=== PATIENT | female | born 1990 | race Caucasian/White ===

== ENCOUNTER 2020-01-17 06:48 | Emergency (ER) | payer OTHER, SELFPAY ==
[2020-01-17 07:01] VITALS: BP 122/83; PULSE 110; RESP 20; TEMP 36.1; O2SAT 100
[2020-01-17] MEDS: ONDANSETRON INJ 4 MG/2 ML VIAL IV PUSH (07:04)
[2020-01-17] MEDS: SODIUM CHLORIDE 0.9% IV 1,000 ML 999 ML IV CONT ×2 (07:04→08:42)
--- NOTE | 2020-01-17 07:07 | ED.ALCOHOL ---
HPI - Alcohol General Chief Complaint: Alcohol Stated Complaint: vomiting Time Seen by Provider: 01/17/20 07:07 Source: patient and RN notes reviewed Mode of arrival: ambulatory Limitations: no limitations History of Present Illness HPI narrative: Patient states that today is her birthday last night she when out and partied with friends. She said that she drank half a bottle of Tequila and has been vomiting all night long. At this point she is only dry heaving. Says her stomach is sore from vomiting so much. Last drink: hours (ago) (12) Chronic alcohol use: No Previous visits for alcohol intoxication: No Recent trauma: No Associated symptoms: nausea, vomiting and abdominal pain Treatments prior to arrival: none Related Data Home Medications Medication Instructions Recorded Confirmed buspirone 7.5 mg PO TID 01/17/20 01/17/20 cyproheptadine 4 mg PO HS 01/17/20 01/17/20 hydroxyzine HCl 10 mg PO PRN 01/17/20 01/17/20 Allergies Allergy/AdvReac Type Severity Reaction Status Date / Time No Known Allergies Allergy Unverified 03/01/13 12:29 Review of Systems Review of Systems: All systems reviewed & are unremarkable except as noted in HPI and below PMFSH Past Medical History Medical History (Updated 01/17/20 @ 09:48 by Gavino Cowan MD) Anxiety disorder Surgical History Surgical History (Updated 01/17/20 @ 07:15 by Gavino Cowan MD) Delivery by section History of bilateral tubal ligation Hx of tonsillectomy Social History Social History (Updated 01/17/20 @ 07:14 by Gavino Cowan MD) Smoking status: Current every day smoker Alcohol intake: current Substance use: current Substance use type: marijuana Exam Const: General: no acute distress, alert and ill appearing (Retching) acutely Nutritional Appearance: well nourished and thin Orientation/consciousness: patient oriented x3 HENMT: Head: normal to inspection Ears: external ears normal General nose exam: Normal external nose present Face and sinus: normal facial exam Mouth: Yes lip normal and Yes moist mucous membranes Eyes: Conjunctivae: conjunctivae normal Pupils: Equal, round and reactive pupils present EOM: EOMs intact bilaterally Neck: Neck: normal visual inspection Resp: Effort & Inspection: normal respiratory effort Auscultation: clear to auscultation bilaterally Cardio: Rate: regular rate Rhythm: regular rhythm GI: GI Palp: Yes Soft to palpation, Yes Tenderness to palpation present (GI) and No Guarding due to palpation present (GI) Auscultation: normal bowel sounds Back/Spine/Pelvis: Cervical Spine: cervical ROM normal Thoracic/Lumbar Spine: thoraco-lumbar ROM normal Skin: General skin exam: normal color Rashes: no rashes Neuro: General: patient oriented x3, moves all extremities and no focal motor deficits Speech: normal speech Extrem: General: normal to inspection and no clubbing, cyanosis or edema Psych: Appearance: grossly normal and well kempt Mental Status: mental status grossly normal Affect: normal affect Attitude: cooperative Thought content: Yes Normal thought content present Course Course Emergency Course: Patient finally stopped vomiting after combination of Zofran and Reglan IV. She received 2 L of normal saline. She feels much better. She was able to eat some pudding without vomiting. and she also urinated. Vital Signs Vital signs: Vital Signs Temperature 36.1 C L 01/17/20 07:01 Pulse Rate 110 H 01/17/20 07:01 Respiratory Rate 20 01/17/20 07:01 Blood Pressure 122/83 01/17/20 07:01 Pulse Oximetry 100 01/17/20 07:01 Temperature 37.0 C 01/17/20 09:47 Pulse Rate 65 01/17/20 09:47 Respiratory Rate 20 01/17/20 09:47 Blood Pressure 110/62 01/17/20 09:47 Pulse Oximetry 99 01/17/20 09:47 MDM - Alcohol Lab Data Result diagrams: 01/17/20 07:26 01/17/20 07:26 Labs: Lab Results 01/17/20 01/17/20 Range/Units 07:
[2020-01-17] MEDS: METOCLOPRAMIDE HCL INJ 10 MG/2 ML VIAL IV PUSH (07:14)
[2020-01-17 07:31] VITALS: BP 116/80; PULSE 48; RESP 18; O2SAT 92
[2020-01-17 07:32] LABS: Basophils Percent Auto 0.7 % (0.0-1.0); Eosinophils Absolute Auto 0.03 K/mm3 (0.02-0.50); Eosinophils Percent Auto 0.2 % (1.0-6.0); Hematocrit 39.4 % (35.0-49.0); Hemoglobin 12.9 g/dL (12.0-15.0); Immature Granulocyte Absolute 0.07 K/mm3 (0.00-0.00); Immature Granulocyte Percent A 0.5 % (0.0-0.0); Lymphocytes Absolute Auto 1.97 K/mm3 (1.10-4.50); Lymphocytes Percent Auto 13.3 % (18.0-42.0); Mean Corpuscular HGB Conc 32.7 g/dL (32.0-36.0); Mean Corpuscular Hemoglobin 29.9 pg (27.0-31.0); Mean Corpuscular Volume 91.4 fL (78.0-102.0); Mean Platelet Volume 11.1 fl (9.2-11.8); Monocytes Absolute Auto 0.68 K/mm3 (0.10-0.90); Monocytes Percent Auto 4.6 % (2.0-11.0); Neutrophils Percent Auto 80.7 % (50.0-70.0); Platelet Count Result 287 K/mm3 (150-420); Red Blood Count 4.31 M/mm3 (4.20-5.40); Red Cell Distribution Width 13.4 % (11.6-14.4); White Blood Count 14.8 K/mm3 (4.8-10.8)
[2020-01-17 07:47] LABS: Alanine Aminotransferase 38 U/L (14-59); Albumin Level 4.3 g/dL (3.4-5.0); Alkaline Phosphatase 56 U/L (46-116); Anion Gap 12 mmol/L (8-16); Aspartate Amino Transferase 35 U/L (15-37); Bilirubin,Total 0.3 mg/dL (0.00-1.00); Blood Urea Nitrogen 14 mg/dL (7-18); Calcium 8.4 mg/dL (8.5-10.1); Carbon Dioxide 25 mmol/L (21-32); Chloride 108 mmol/L (98-108); Estimated Glomerular Filt Rate > 60; Ethanol 5 mg/dL (0-6); Glucose 144 mg/dL (70-99); Osmolality Calculated 303 mOsm/kg (285-295); Potassium 3.7 mmol/L (3.5-5.1); Sodium 145 mmol/L (136-145); Total Protein 7.1 g/dL (6.4-8.2)
[2020-01-17 09:47] VITALS: BP 110/62; PULSE 65; RESP 20; TEMP 37; O2SAT 99
== END 2020-01-17 09:54 | disposition home or self-care (01) ==
PROVIDERS: Emergency Provider Emergency Medicine
DX: R11.2 Nausea with vomiting, unspecified (principal)
CPT/HCPCS: 36415; 80053; 80307; 85025; 96361; 96374; 96375; 99283; 99284; J2405; J2765; J7030

== ENCOUNTER 2020-04-01 15:03 | Emergency (ER) | payer OTHER, SELFPAY ==
--- NOTE | ~2020-04-01 | CT_ITS ---
EXAMINATION: CT abdomen pelvis w con DATE: 04/01/2020 17:01 INDICATION: Lower abdominal pain TECHNIQUE: Computed tomography (CT) of the abdomen and pelvis was performed with 100 mL Omnipaque-350 intravenous contrast. Automated exposure control and iterative reconstruction technique were employe d. The dose-length product was 305.79 mGy-cm. COMPARISON: None FINDINGS: Lung bases are clear. Heart size is normal. No pericardial or pleural effusion. Wall thickening at th e gastric antrum. Liver, gallbladder, spleen, pancreas, bilateral adrenal glands and kidneys are norm al. Bowels including the appendix are normal. Bladder, retroverted uterus and bilateral adnexa are un remarkable. Small amount of likely physiologic free fluid in the pelvis. No abscess or free intraperi leila gas. No pathologically enlarged abdominal or pelvic lymphadenopathy. Mild lumbar levocurvature. Right acetabular bone island. IMPRESSION: 1. Wall thickening at the gastric antrum which could be due to gastritis, peptic ulcer disease or art ifact of peristalsis. 2. Small amount of likely physiologic free fluid in the pelvis. No other acute intra-abdominal/pelvic process. Reviewed, dictated and finalized at location A. [employer] IMPRESSION: 1. Wall thickening at the gastric antrum which could be due to gastritis, pepti c ulcer disease or artifact of peristalsis. 2. Small amount of likely physiologic free fluid in the pelvis. No other acute intra-abdominal/pelvic process.
[2020-04-01 15:20] VITALS: BP 100/63; PULSE 70; RESP 16; TEMP 36.6; O2SAT 98
[2020-04-01 16:16] LABS: Basophils Absolute Auto 0.08 K/mm3 (0.00-0.10); Basophils Percent Auto 0.9 % (0.0-1.0); Eosinophils Absolute Auto 0.18 K/mm3 (0.02-0.50); Eosinophils Percent Auto 2.1 % (1.0-6.0); Hematocrit 37.2 % (35.0-49.0); Hemoglobin 12.1 g/dL (12.0-15.0); Immature Granulocyte Absolute 0.03 K/mm3 (0.00-0.00); Immature Granulocyte Percent A 0.4 % (0.0-0.0); Lymphocytes Absolute Auto 2.85 K/mm3 (1.10-4.50); Lymphocytes Percent Auto 33.6 % (18.0-42.0); Mean Corpuscular HGB Conc 32.5 g/dL (32.0-36.0); Mean Corpuscular Hemoglobin 29.5 pg (27.0-31.0); Mean Corpuscular Volume 90.7 fL (78.0-102.0); Monocytes Absolute Auto 0.75 K/mm3 (0.10-0.90); Monocytes Percent Auto 8.8 % (2.0-11.0); Neutrophils Absolute Auto 4.6 K/mm3 (1.7-7.2); Neutrophils Percent Auto 54.2 % (50.0-70.0); Platelet Count Result 245 K/mm3 (150-420); Red Cell Distribution Width 13.2 % (11.6-14.4); White Blood Count 8.5 K/mm3 (4.8-10.8)
[2020-04-01 16:19] LABS: Add Urine Microscopic? YES; Appearance Urine Cloudy (Clear); Bilirubin Urine 1+ (Negative); Blood Urine 3+ (Negative); Color Urine Amber (Yellow); Glucose Urine UA Negative (Negative); Ketones Urine Negative (Negative); Leukocyte Esterase Ur Negative LEU/UL (Negative); Nitrate Urine Negative (Negative); Protein Urine Trace (Negative); Specific Grav Ur 1.025 (1.010-1.020); Urobilinogen Urine 0.2 mg/dL (0.2-1.0); pH Urine 5.5 (5.0-8.0)
[2020-04-01 16:28] LABS: RBC Urine 51-75 /hpf (0-2)
[2020-04-01 16:29] LABS: Bacteria Urine 1+ /hpf; Squamous Epithelial Cell Urine Few /hpf (Few); WBC Urine 0-3 /hpf (0-3)
[2020-04-01 16:30] LABS: Urine Pregnancy Test Negative
[2020-04-01] MEDS: SODIUM CHLORIDE 0.9% IV 1,000 ML 999 ML IV CONT (16:30)
[2020-04-01] MEDS: ONDANSETRON INJ 4 MG/2 ML VIAL IV PUSH (16:30)
[2020-04-01 16:31] LABS: Partial Thromboplastin Time 29.2 SEC (23.90-30.70); Prothrombin Time 11.4 Seconds (9.50-12.10)
[2020-04-01 16:31] LABS: Pregnancy On Board Control Positive
[2020-04-01 16:32] LABS: Alanine Aminotransferase 23 U/L (14-59); Albumin Level 3.8 g/dL (3.4-5.0); Alkaline Phosphatase 50 U/L (46-116); Anion Gap 9 mmol/L (8-16); Aspartate Amino Transferase 19 U/L (15-37); Bilirubin,Total 0.5 mg/dL (0.00-1.00); Blood Urea Nitrogen 14 mg/dL (7-18); Calcium 8.5 mg/dL (8.5-10.1); Carbon Dioxide 27 mmol/L (21-32); Chloride 106 mmol/L (98-108); Estimated Glomerular Filt Rate > 60; Glucose 79 mg/dL (70-99); Lipase 52 U/L (73-393); Osmolality Calculated 293 mOsm/kg (285-295); Potassium 3.6 mmol/L (3.5-5.1); Sodium 142 mmol/L (136-145); Total Protein 6.7 g/dL (6.4-8.2)
[2020-04-01] MEDS: DICYCLOMINE HCL INJ 20 MG/2 ML VIAL IM (16:44)
--- NOTE | 2020-04-01 17:09 | ED.ABDPAIN ---
HPI - Abdominal Pain General Chief Complaint: Abdominal Pain Stated Complaint: 30YO female w/ 2 day h/o generalized abd pain associated w/ N/V. Patient here for evaluation, denies fever, chills, URI Related Data Home Medications Medication Instructions Recorded Confirmed buspirone 7.5 mg PO TID 01/17/20 04/01/20 cyproheptadine 4 mg PO HS 01/17/20 04/01/20 hydroxyzine HCl 10 mg PO PRN 01/17/20 04/01/20 Allergies Allergy/AdvReac Type Severity Reaction Status Date / Time No Known Allergies Allergy Unverified 03/01/13 12:29 Review of Systems Review of Systems: All systems reviewed & are unremarkable except as noted in HPI and below Constitutional: Constitutional: Reports no additional constitutional complaints, Denies chills, Denies fever(s) and Denies weakness Cardiovascular: Cardiovascular: Reports no additional cardiovascular complaints and Denies chest pain Respiratory: Respiratory: Reports no additional respiratory complaints Gastrointestinal: Gastrointestinal: Reports abdominal pain, Denies constipation, Denies diarrhea, Reports nausea and Reports vomiting Musculoskeletal: Musculoskeletal: Reports no additional musculoskeletal complaints Integumentary/Breasts: Skin/Breast: Reports system reviewed and no additional complaints, except as docu Neurologic: Reports system reviewed and no additional complaints, except as documented Psychiatric: Psychiatric: Reports no additional psychiatric complaints Endocrine: Endocrine: Reports no additional endocrine complaints Hematologic/Lymphatic: Hematologic/Lymphatic: Reports no additional hematologic/lymphatic complaints [facility] Past Medical History Medical History Anxiety disorder Surgical History Surgical History Delivery by section History of bilateral tubal ligation Hx of tonsillectomy Social History Social History Smoking status: Current every day smoker Alcohol intake: current Substance use: current Substance use type: marijuana Exam Const: General: healthy appearing and no acute distress Nutritional Appearance: well nourished Orientation/consciousness: patient oriented x3 Limitations: no limitations HENMT: Head: normal to inspection Eyes: Conjunctivae: conjunctivae normal Pupils: Equal, round and reactive pupils present Neck: Neck: normal visual inspection Chest: Chest palpation & inspection: normal inspection of the chest Resp: Effort & Inspection: normal respiratory effort Auscultation: clear to auscultation bilaterally Cardio: Rate: regular rate Rhythm: regular rhythm GI: Inspection: non-distended GI Palp: Yes Soft to palpation, Yes Tenderness to palpation present (GI) (Mild generalized TTP), No Guarding due to palpation present (GI) and No Rebound tenderness present Percussion: Yes normal to percussion Auscultation: normal bowel sounds, bowel sounds present, Hyperactive bowel sounds present and no hypoactive bowel sounds : General: Yes no CVA tenderness Back/Spine/Pelvis: Back: no CVA tenderness Skin: General skin exam: normal color Neuro: General: patient oriented x3, moves all extremities, no meningeal signs, no focal motor deficits and CN's II-XI intact bilaterally Cranial nerves: Yes Nystagmus not present Speech: normal speech Gait exam (Neuro): Normal gait present Extrem: General: normal to inspection Psych: Mental Status: mental status grossly normal Course Course Emergency Course: W/U reviewed and normal (Pt on menstrual cycle). She feels better after IVF and Bentyl. Wants to go home. Vital Signs Vital signs: Vital Signs Temperature 97.9 F 04/01/20 15:20 Pulse Rate 70 04/01/20 15:20 Respiratory Rate 16 04/01/20 15:20 Blood Pressure 100/63 04/01/20 15:20 Pulse Oximetry 98 04/01/20 15:20 Temperature 97.
== END 2020-04-01 17:48 | disposition home or self-care (01) ==
PROVIDERS: Emergency Provider Family Medicine
DX: K52.9 Noninfective gastroenteritis and colitis, unspecified (principal)
CPT/HCPCS: 36415; 74177; 80053; 81001; 81025; 83690; 85025; 85610; 85730; 96361; 96374; 96375; 99283; 99284; J0500; J2405; J7030; Q9965

== ENCOUNTER → 2020-05-21 15:53 | Outpatient (CLI) | payer OTHER, SELFPAY ==
[2020-05-21 18:26] LABS: SARS-CoV-2 RNA PCR Negative
== END ==
PROVIDERS: PCP Family Medicine; Visit Provider Internal Medicine Gastroenterology
DX: Z01.812 Encounter for preprocedural laboratory examination (principal); Z20.822 Contact with and (suspected) exposure to COVID-19
CPT/HCPCS: C9803; U0003; U0005

== ENCOUNTER 2020-05-23 00:52 | Day surgery (SDC) | payer OTHER, SELFPAY ==
[2020-05-14 10:48] VITALS: BMI 25.8
--- NOTE | 2020-05-22 13:50 | WPDANESEPPF ---
Anes - Initial Pre Proc Eval Procedure: Operation Date: 05/23/20 12:30 Proposed Procedures p Colonoscopy - Gavino Huerta DO Date/Time: 05/22/20 13:50 Surgeon: Gavino Huerta DO Pre Op Diagnosis: Irritable Bowel Syndrome, Constipation/Diarrhea Patient Data Age: 30 Gender: F Height: 1.5 m Weight: 58 kg Allergies Allergy/AdvReac Type Severity Reaction Status Date / Time No Known Allergies Allergy Unverified 05/23/20 11:39 Home Medications Medication Instructions Recorded Confirmed Type buspirone 7.5 mg PO TID 01/17/20 05/14/20 History hydroxyzine HCl 10 mg PO PRN 01/17/20 05/14/20 History ondansetron 4 mg PO Q8H PRN #20 tablet 04/01/20 05/14/20 Rx Patient hx anesthesia problems: none Family hx anesthesia problems: none PMFSH Past Medical History Medical History (Updated 05/22/20 @ 13:50 by Ignacio Mae DO) Anxiety disorder Bipolar disorder Surgical History Surgical History Delivery by section History of bilateral tubal ligation Hx of tonsillectomy Social History Social History Smoking packs per day: 0.5 Smoking cigarettes per day: 10.0 Years smoked: 18 Smoking pack-years: 9.00 Smoking status: Current every day smoker Tobacco type: cigarettes Alcohol intake: never Substance use: current Substance use type: marijuana Last use: daily Living arrangements: with family Spiritual care concerns: No Anes - Eval Final PreProcedure Day of Procedure 05/22/20 13:50 Patient weight: overweight Heart: regular rate and rhythm Lungs: clear to auscultation and normal air movement Airway: Mallampati scale class II Neurological: alert and oriented Last oral intake: >/= 8 hours ASA classification: III Emergent: no Anesthetic plan: proceed Anesthesia type and monitoring: general GIVS and standard monitoring Informed Consent: The patient's anesthetic plan and its attendant risks and benefits were discussed with the patient/family/POA. Questions were solicited and answers provided to the satisfaction of the patient/family/POA.
[2020-05-23 11:41] VITALS: BP 102/60; PULSE 60; RESP 16; TEMP 35.9; O2SAT 100
[2020-05-23] MEDS: LACTATED RINGERS 1,000 ML 150 ML IV CONT (11:53)
--- NOTE | 2020-05-23 12:21 | PM.IMHP ---
H&P: [facility] History of Present Illness Date/Time: 05/23/20 12:21 Chief Complaint: Reason for visit colonoscopy. Narrative: Reason for visit is colonoscopy. This very pleasant lady's seen at the request of the primary physician. The patient examined chart reviewed. Impression: Here very pleasantly with abdominal pain with alternating constipation and diarrhea. This may be variant of IBS. She does have some thickening of the gastric antrum and a imaging which may indicate underlying peptic ulcer disease. Anxiety/depression /bipolar. Methamphetamine abuse in remission. Recommendation: Colonoscopy. EGD scheduled. History: This very pleasant lady's being that for abdominal pain. She is having abdominal pain in the epigastric area for the last month. Eating exacerbates the pain. Nausea, vomiting hematemesis tonight. She has lost approximately 5 lb since it began. The pain has been slowly improving. Bowel habits tend to be 1 of alternating constipation diarrhea. He has been that for years. Hematochezia, melena And acholic stools or night. Patient is here for colonoscopy. EGD scheduled. CT image revealed a thickened gastric antrum. Physical examination: General: very pleasant patient in no acute distress. HEENT: Head was normocephalic sclerae is clear mouth without masses neck was supple. Heart: Rate rhythm regular without S3 or S4. Lungs: CTA. Abdomen: Soft with no guarding or rigidity. Bowel sounds were active. Neurologic: Cranial nerves 2 through 12 intact. No focal defects. No clonus. Musculoskeletal system: Revealed no joint tenderness or swelling no muscle atrophy. Extremities: Reveal no significant edema. Skin: Warm and dry with normal turgor. Mental status: intact. Patient is alert and oriented. Review of Systems Review of Systems: All systems reviewed & are unremarkable except as noted in HPI and below [facility] Past Medical History Medical History (Updated 05/23/20 @ 12:22 by Gavino Huetra DO) Anxiety disorder Bipolar disorder IBS (irritable bowel syndrome) C/D Methamphetamine abuse in remission Surgical History Surgical History Delivery by section History of bilateral tubal ligation Hx of tonsillectomy Social History Social History Smoking packs per day: 0.5 Smoking cigarettes per day: 10.0 Years smoked: 18 Smoking pack-years: 9.00 Smoking status: Current every day smoker Tobacco type: cigarettes Alcohol intake: never Substance use: current Substance use type: marijuana Last use: daily Living arrangements: with family Spiritual care concerns: No Meds Home Medications and Allergies Home Medications Medication Instructions Recorded Confirmed Type buspirone 7.5 mg PO TID 01/17/20 05/23/20 History hydroxyzine HCl 10 mg PO PRN 01/17/20 05/23/20 History ondansetron 4 mg PO Q8H PRN #20 tablet 04/01/20 05/23/20 Rx Allergies Allergy/AdvReac Type Severity Reaction Status Date / Time No Known Allergies Allergy Unverified 05/23/20 11:39 Vital Signs Vital Signs - 24 hr 05/23/20 11:41 Temperature 35.9 C L Pulse Rate 60 Respiratory Rate 16 Blood Pressure 102/60 Pulse Oximetry 100
[2020-05-23 12:44] VITALS: BP 100/67; PULSE 73; RESP 18; O2SAT 100
[2020-05-23 12:54] VITALS: BP 95/63; PULSE 76; RESP 16; O2SAT 99
[2020-05-23 13:04] VITALS: BP 98/58; PULSE 62; RESP 17; O2SAT 100
== END 2020-05-23 13:26 | disposition home or self-care (01) ==
PROVIDERS: PCP Family Medicine; Visit Provider Internal Medicine Gastroenterology
PROC: 0DJD8ZZ Inspection of Lower Intestinal Tract, Via Natural or Artificial Opening Endoscopic (ICD-10-PCS; CPT 45378; principal; 2020-05-23 12:30)
DX: K52.9 Noninfective gastroenteritis and colitis, unspecified (principal); K62.1 Rectal polyp; F41.9 Anxiety disorder, unspecified; F31.9 Bipolar disorder, unspecified; F17.210 Nicotine dependence, cigarettes, uncomplicated; F12.90 Cannabis use, unspecified, uncomplicated
CPT/HCPCS: 45380; 88305; J2704; J7120

== ENCOUNTER → 2020-06-02 00:25 | Outpatient (CLI) | payer OTHER, SELFPAY ==
[2020-06-02 20:38] LABS: SARS-CoV-2 RNA PCR Negative
== END ==
PROVIDERS: PCP Family Medicine; Visit Provider Internal Medicine Gastroenterology
DX: Z01.812 Encounter for preprocedural laboratory examination (principal); Z20.822 Contact with and (suspected) exposure to COVID-19
CPT/HCPCS: C9803; U0003; U0005

== ENCOUNTER 2020-06-06 00:29 | Day surgery (SDC) | payer OTHER, SELFPAY ==
[2020-05-14 10:55] VITALS: BMI 25.8
[2020-06-06 10:38] VITALS: BP 116/47; PULSE 71; RESP 16; TEMP 36.5; O2SAT 100
[2020-06-06] MEDS: LACTATED RINGERS 1,000 ML 150 ML IV CONT (10:45)
--- NOTE | 2020-06-06 10:50 | WPDANESEPPF ---
Anes - Initial Pre Proc Eval Procedure: Operation Date: 06/06/20 11:30 Proposed Procedures p Esophagogastroduodenoscopy - Gavino Huerta DO Date/Time: 06/06/20 10:50 Surgeon: Gavino Huerta DO Pre Op Diagnosis: Nausea, Gastro eshophageal Reflux Disease Patient Data Age: 30 Gender: F Height: 4 ft 11 in Weight: 57.9 kg Last Vital Signs Temp 36.5 C 06/06/20 10:38 Pulse 71 06/06/20 10:38 Resp 16 06/06/20 10:38 BP 116/47 L 06/06/20 10:38 Pulse Ox 100 06/06/20 10:38 Allergies Allergy/AdvReac Type Severity Reaction Status Date / Time No Known Allergies Allergy Verified 06/06/20 10:33 Home Medications Medication Instructions Recorded Confirmed Type buspirone 7.5 mg PO TID 01/17/20 05/23/20 History hydroxyzine HCl 10 mg PO PRN 01/17/20 05/23/20 History ondansetron 4 mg PO Q8H PRN #20 tablet 04/01/20 05/23/20 Rx Patient hx anesthesia problems: none Family hx anesthesia problems: none PMFSH Past Medical History Medical History Anxiety disorder Bipolar disorder IBS (irritable bowel syndrome) C/D Methamphetamine abuse in remission Surgical History Surgical History Delivery by section History of bilateral tubal ligation Hx of tonsillectomy Social History Social History Smoking packs per day: 0.5 Smoking cigarettes per day: 10.0 Years smoked: 18 Smoking pack-years: 9.00 Smoking status: Current every day smoker Tobacco type: cigarettes Alcohol intake: never Substance use: current Substance use type: marijuana Last use: daily Living arrangements: with family Spiritual care concerns: No Anes - Eval Final PreProcedure Day of Procedure 06/06/20 10:50 Patient weight: normal Heart: regular rate and rhythm Lungs: clear to auscultation Airway: Mallampati scale class II Neurological: alert and oriented Last oral intake: >/= 8 hours ASA classification: II Emergent: no Anesthetic plan: proceed Anesthesia type and monitoring: general GIVS and standard monitoring Informed Consent: The patient's anesthetic plan and its attendant risks and benefits were discussed with the patient/family/POA. Questions were solicited and answers provided to the satisfaction of the patient/family/POA.
--- NOTE | 2020-06-06 11:53 | WPDHPUPDATE1 ---
History and Physical Update Update Date/Time: 06/06/20 11:53 History and Physical has been reviewed, including an updated exam of the patient. There are NO changes in the patient's condition. Risks, benefits, and alternatives have been discussed and questions answered. Patient agrees to proceed with procedure.
[2020-06-06 12:03] VITALS: BP 100/55; PULSE 73; RESP 19; O2SAT 99
[2020-06-06 12:13] VITALS: BP 100/58; PULSE 72; RESP 24; O2SAT 100
[2020-06-06 12:23] VITALS: BP 104/57; PULSE 70; RESP 23; O2SAT 100
== END 2020-06-06 12:40 | disposition home or self-care (01) ==
PROVIDERS: PCP Family Medicine; Visit Provider Internal Medicine Gastroenterology
PROC: 0DJ08ZZ Inspection of Upper Intestinal Tract, Via Natural or Artificial Opening Endoscopic (ICD-10-PCS; CPT 43235; principal; 2020-06-06 11:30)
DX: K21.9 Gastro-esophageal reflux disease without esophagitis (principal); K25.9 Gastric ulcer, unspecified as acute or chronic, without hemorrhage or perforation; K44.9 Diaphragmatic hernia without obstruction or gangrene; K29.50 Unspecified chronic gastritis without bleeding; B96.81 Helicobacter pylori [H. pylori] as the cause of diseases classified elsewhere; F31.9 Bipolar disorder, unspecified; F41.9 Anxiety disorder, unspecified; K58.2 Mixed irritable bowel syndrome; F17.210 Nicotine dependence, cigarettes, uncomplicated; F12.90 Cannabis use, unspecified, uncomplicated
CPT/HCPCS: 43239; 87081; 88305; 88342; J2704; J7120

== ENCOUNTER 2021-07-15 19:52 | Emergency (ER) | payer OTHER, SELFPAY ==
[2021-07-15 20:01] VITALS: BP 115/72; PULSE 84; RESP 16; TEMP 36.3; O2SAT 99
--- NOTE | 2021-07-15 20:16 | ED.NAVMDI ---
HPI - Nausea/Vomiting/Diarrhea General Chief complaint: Unspecified Stated complaint: stomach pain Time Seen by Provider: 07/15/21 20:16 Source: patient History of Present Illness HPI Narrative: 31-year-old female, smoker, status post , status post BTL, Anxiety, bipolar disorder history of methamphetamine abuse presents to the ER with -- acute onset epigastric pain. Pain started 2 hours ago. -- Nausea without any vomiting. No diarrhea. No fever. No prior episodes of abdominal pain MD elicited complaint: nausea Pertinent past history: anorexia Onset (ago): hour(s) ( started 2 hours ago.) Associated nausea: Yes Associated abdominal pain: Yes Location of pain: epigastric Radiation: diffuse Pain consistency: constant Severity: severe Quality: aching Exacerbating factors: none Relieving factors: none Related Data Home Medications Medication Instructions Recorded Confirmed buspirone 7.5 mg PO TID 01/17/20 07/15/21 hydroxyzine HCl 10 mg PO PRN 01/17/20 07/15/21 Allergies Allergy/AdvReac Type Severity Reaction Status Date / Time No Known Allergies Allergy Verified 06/06/20 10:33 Review of Systems Review of Systems: All systems reviewed & are unremarkable except as noted in HPI and below Constitutional: Constitutional: Reports as per HPI and Reports no additional constitutional complaints Eyes: Eyes: Reports as per HPI and Reports no additional eye complaints ENT: Reports system reviewed and no additional complaints, except as documented and Reports as per HPI Cardiovascular: Cardiovascular: Reports as per HPI and Reports no additional cardiovascular complaints Respiratory: Respiratory: Reports as per HPI and Reports no additional respiratory complaints Gastrointestinal: Gastrointestinal: Reports as per HPI, Reports no additional gastrointestinal complaints, Reports abdominal pain and Reports nausea Genitourinary: Genitourinary: Reports no additional female genitourinary complaints and Reports as per HPI Musculoskeletal: Musculoskeletal: Reports no additional musculoskeletal complaints and Reports as per HPI Integumentary/Breasts: Skin/Breast: Reports system reviewed and no additional complaints, except as docu Neurologic: Reports system reviewed and no additional complaints, except as documented and Reports as per HPI Psychiatric: Psychiatric: Reports no additional psychiatric complaints and Reports as per HPI Endocrine: Endocrine: Reports no additional endocrine complaints and Reports as per HPI Hematologic/Lymphatic: Hematologic/Lymphatic: Reports no additional hematologic/lymphatic complaints Allergic/Immunologic: Allergic/Immunologic: Reports no additional allergic/immunologic complaints PMFSH Past Medical History Medical History Anxiety disorder Bipolar disorder IBS (irritable bowel syndrome) C/D Methamphetamine abuse in remission Surgical History Surgical History Delivery by section History of bilateral tubal ligation Hx of tonsillectomy Social History Social History Smoking packs per day: 0.5 Smoking cigarettes per day: 10.0 Years smoked: 18 Smoking pack-years: 9.00 Smoking status: Current every day smoker Tobacco type: cigarettes Alcohol intake: never Substance use: current Substance use type: marijuana Last use: daily Spiritual care concerns: No Exam Const: General: cooperative, healthy appearing, comfortable and no acute distress HENMT: Head: normal to inspection Ears: hearing grossly normal bilaterally General nose exam: Normal external nose present Face and sinus: normal facial exam Mouth: Yes Normal oral and palatal mucosa present and Yes lip normal Eyes: General: appearance normal, both eyes and all related structures Neck: Neck: normal visual inspection, fu
[2021-07-15 20:33] LABS: Basophils Absolute Auto 0.08 K/mm3 (0.00-0.10); Eosinophils Absolute Auto 0.17 K/mm3 (0.02-0.50); Eosinophils Percent Auto 2.1 % (1.0-6.0); Hematocrit 37.8 % (35.0-49.0); Hemoglobin 12.1 g/dL (12.0-15.0); Immature Granulocyte Absolute 0.02 K/mm3 (0.00-0.00); Immature Granulocyte Percent A 0.2 % (0.0-0.0); Lymphocytes Absolute Auto 2.51 K/mm3 (1.10-4.50); Lymphocytes Percent Auto 30.6 % (18.0-42.0); Mean Corpuscular Hemoglobin 29.8 pg (27.0-31.0); Mean Corpuscular Volume 93.1 fL (78.0-102.0); Mean Platelet Volume 10.8 fl (9.2-11.8); Monocytes Absolute Auto 0.79 K/mm3 (0.10-0.90); Monocytes Percent Auto 9.6 % (2.0-11.0); Neutrophils Absolute Auto 4.6 K/mm3 (1.7-7.2); Neutrophils Percent Auto 56.5 % (50.0-70.0); Platelet Count Result 236 K/mm3 (150-420); Red Blood Count 4.06 M/mm3 (4.20-5.40); Red Cell Distribution Width 13.1 % (11.6-14.4); White Blood Count 8.2 K/mm3 (4.8-10.8)
[2021-07-15 20:49] LABS: Alanine Aminotransferase 22 U/L (14-59); Albumin Level 3.7 g/dL (3.4-5.0); Alkaline Phosphatase 65 U/L (46-116); Anion Gap 8 mmol/L (8-16); Aspartate Amino Transferase 16 U/L (15-37); Bilirubin,Total 0.1 mg/dL (0.00-1.00); Blood Urea Nitrogen 16 mg/dL (7-18); Calcium 8.7 mg/dL (8.5-10.1); Carbon Dioxide 26 mmol/L (21-32); Chloride 104 mmol/L (98-108); Estimated CRCL calculation 55 ml/min; Estimated Glomerular Filt Rate > 60; Glucose 102 mg/dL (70-99); Lipase 79 U/L (73-393); Osmolality Calculated 287 mOsm/kg (285-295); Potassium 3.4 mmol/L (3.5-5.1); Sodium 138 mmol/L (136-145); Total Protein 6.3 g/dL (6.4-8.2)
[2021-07-15 20:54] LABS: Appearance Urine Clear (Clear); Bilirubin Urine Negative (Negative); Color Urine Yellow (Yellow); Glucose Urine UA Negative (Negative); Ketones Urine Negative (Negative); Leukocyte Esterase Ur Negative (Negative); Nitrate Urine Negative (Negative); Protein Urine Negative (Negative); Specific Grav Ur >= 1.030 (1.010-1.020); Urobilinogen Urine 0.2 mg/dL (0.2-1.0)
[2021-07-15 20:54] LABS: Lactic Acid Reflex 0.9 mmol/L (0.4-2.0)
[2021-07-15 20:59] LABS: Add Urine Microscopic? YES; Bacteria Urine Trace /hpf; Blood Urine Trace-Intact (Negative); Squamous Epithelial Cell Urine Few /hpf (Few); WBC Urine 0-3 /hpf (0-3)
[2021-07-15 21:35] VITALS: BP 111/70; PULSE 80; RESP 18; TEMP 36.1; O2SAT 99
== END 2021-07-15 21:37 | disposition home or self-care (01) ==
PROVIDERS: Emergency Provider Internal Medicine Critical Care Medicine; PCP Family Medicine
DX: R10.84 Generalized abdominal pain (principal); K29.00 Acute gastritis without bleeding
CPT/HCPCS: 36415; 80053; 81001; 83605; 83690; 85025; 99283

== ENCOUNTER 2022-06-02 08:51 | Emergency (ER) | payer OTHER, SELFPAY ==
[2022-06-02 08:51] VITALS: BP 121/78; PULSE 95; RESP 18; TEMP 36.7; TEMP 36.8; O2SAT 100
--- NOTE | 2022-06-02 09:18 | ED.GENADULT ---
HPI - General Adult General Chief complaint: Skin/Abscess/Foreign Body Stated complaint: left side facial pain and swelling Time Seen by Provider: 06/02/22 09:00 History of Present Illness HPI narrative: The patient is a 32-year-old woman with history of ADHD, anxiety, and bipolar affective disorder. During episodes of nervousness, she takes on her skin. Two months ago, she started picking on the skin of her forehead at the hairline on the left side. This had healed reasonably OK but with an eschar. Two days ago, the patient started developing swelling but no pain, anterior to the left ear at the jawline. Today, she woke up and had more swelling on the left aspect of her face including her eyelids cheek forehead and left jaw. No pain is noted today either. No fevers or chills. There is purulent drainage from the area that she had been picking at, located at the hairline on the left of the forehead. Vision adequate and unchanged. Hearing adequate and unchanged. No dental tenderness or dental sensitivity or dental caries. No sore throat. No blurred vision or distortion of her vision. No other complaints. No redness or cellulitis of the face. Related Data Home Medications Medication Instructions Recorded Confirmed hydroxyzine HCl 10 mg tablet 10 mg PO PRN 01/17/20 06/02/22 Allergies Allergy/AdvReac Type Severity Reaction Status Date / Time No Known Allergies Allergy Verified 06/02/22 08:57 Review of Systems Review of Systems: All systems reviewed & are unremarkable except as noted in HPI and below Constitutional: Constitutional: Reports no additional constitutional complaints, Denies anorexia, Denies body ache(s), Denies chills, Denies excessive sweating, Denies fatigue, Denies fever(s), Denies frequent falls, Denies headache(s), Denies malaise and Denies poor appetite Eyes: Eyes: Reports no additional eye complaints, Denies blurry vision, Denies change in vision, Denies irritation, Denies itchy eyes and Denies photophobia ENT: Reports system reviewed and no additional complaints, except as documented, Reports Normal hearing present, Denies change in voice, Denies dysphagia, Denies vertigo, Denies dizziness, Denies ear discharge, Denies headache(s) ( Swelling to the left side of the face including the forehead cheek jaw ), Denies hearing loss, Denies hoarseness, Denies nasal congestion, Denies neck pain, Denies sinus pressure, Denies sore throat and Denies throat swelling Cardiovascular: Cardiovascular: Reports no additional cardiovascular complaints, Denies chest pain, Denies syncope, Denies rapid heart rate, Denies irregular heart rhythm, Denies leg edema, Denies dyspnea and Denies slow heart rate Respiratory: Respiratory: Reports no additional respiratory complaints, Denies cough, Denies dyspnea, Denies stridor and Denies wheezing Gastrointestinal: Gastrointestinal: Reports no additional gastrointestinal complaints, Denies abdominal pain, Denies melena, Denies hematochezia, Denies dysphagia, Denies diarrhea, Denies nausea and Denies vomiting Genitourinary: Genitourinary: Denies hematuria, Denies urinary frequency, Denies dysuria, Denies flank pain and Denies urinary urgency Musculoskeletal: Musculoskeletal: Reports no additional musculoskeletal complaints, Denies abnormal gait, Denies back pain, Denies myalgias, Denies arthralgias, Denies joint swelling, Denies limited range of motion, Denies muscle cramps, Denies muscle weakness, Denies neck pain and Denies numbness Integumentary/Breasts: Skin/Breast: Reports system reviewed and no additional complaints, except as docu, Denies breast pain, Denies change in pigmentation, Denies pruritus, Denies erythema and Denies wounds Comments: no rash. There is an eschar in the left forehead that is draining purulent material Neurologic: Reports system reviewed and no additional complaints, except as documented, Reports Normal hearing present, Denies Abnormal speech present, Denies ab
[2022-06-02] MEDS: ceFAZolin 2 GM/D5W 50 ML 2 GM/50 ML BAG IVPB (09:33)
[2022-06-02] MEDS: SULFAMETHOXAZOLE/TRIMETHOPRIM 800/160 MG DS TABLET 1 TAB PO (10:07)
[2022-06-02 10:20] VITALS: BP 118/70; PULSE 88; RESP 18; O2SAT 99
--- NOTE | 2022-06-05 13:52 | PC.NURSE ---
Addendum entered by Ana Uriarte RN 06/05/22 13:54: per dr nelson, no change to medications, patient called to inquire about medications and if she needed any change prior to reports printing, patient has been contacted to continue taking as prescribed. Original Note: culture report finalized, no change in antibiotic therapy.
== END 2022-06-02 10:20 | disposition home or self-care (01) ==
PROVIDERS: Emergency Provider Emergency Medicine; PCP Family Medicine
DX: S00.01XA Abrasion of scalp, initial encounter (principal); B96.89 Other specified bacterial agents as the cause of diseases classified elsewhere; F17.210 Nicotine dependence, cigarettes, uncomplicated; X78.8XXA Intentional self-harm by other sharp object, initial encounter
CPT/HCPCS: 87070; 87147; 87186; 87205; 96365; 99284; A9270; J0690

== ENCOUNTER 2022-07-15 20:02 | Emergency (ER) | payer OTHER, SELFPAY ==
[2022-07-15 20:08] VITALS: BP 100/71; PULSE 87; RESP 18; TEMP 37; O2SAT 98
--- NOTE | 2022-07-15 20:09 | ED.EYEPROB ---
HPI - Eye Problem General Chief complaint: Eye Problems Stated complaint: nauseated, Rt pink eye Time Seen by Provider: 07/15/22 20:08 Source: patient Mode of arrival: ambulatory Limitations: no limitations History of Present Illness HPI Narrative: 32-year-old white female complains of right eyelid swelling and feeling heavy without foreign body sensation or without blurred vision or double vision or discharge plan. Related Data Allergies Allergy/AdvReac Type Severity Reaction Status Date / Time No Known Allergies Allergy Verified 06/02/22 08:57 Review of Systems Constitutional: Constitutional: Reports no additional constitutional complaints Eyes: Eyes: Reports no additional eye complaints, Denies change in vision and Denies photophobia ENT: Reports system reviewed and no additional complaints, except as documented Cardiovascular: Cardiovascular: Reports no additional cardiovascular complaints Respiratory: Respiratory: Reports no additional respiratory complaints Gastrointestinal: Gastrointestinal: Reports no additional gastrointestinal complaints and Reports nausea Genitourinary: Genitourinary: Reports no additional female genitourinary complaints PMFSH Past Medical History Medical History Anxiety disorder Bipolar disorder IBS (irritable bowel syndrome) C/D Methamphetamine abuse in remission Surgical History Surgical History Delivery by section History of bilateral tubal ligation Hx of tonsillectomy Social History Social History Smoking packs per day: 0.5 Smoking cigarettes per day: 10.0 Years smoked: 18 Smoking pack-years: 9.00 Smoking status: Current every day smoker Tobacco type: cigarettes Alcohol intake: never Substance use: current Substance use type: marijuana Last use: daily Living arrangements: with family Spiritual care concerns: No Exam Const: General: healthy appearing Nutritional Appearance: well nourished Orientation/consciousness: patient oriented x3 Limitations: no limitations Other: right eye lid swelling. I no foreign bodies pupils equal round react to light conjunctiva clear left eyes normal face she has some small scabs on the right side of her face and left cheek. HENMT: Head: normal to inspection Ears: external ears normal Course Course Emergency Course: Evaluation discussed all questions were asked and answered visual acuity was 20 30 in the right eye 2024 and left eye 2024 in both eyes. Vital Signs Vital signs: Vital Signs Temperature 37.0 C 07/15/22 20:08 Pulse Rate 87 07/15/22 20:08 Respiratory Rate 18 07/15/22 20:08 Blood Pressure 100/71 07/15/22 20:08 Pulse Oximetry 98 07/15/22 20:08 Oxygen Delivery Room Air 07/15/22 20:08 Temperature 36.6 C 07/15/22 21:22 Pulse Rate 80 07/15/22 21:22 Respiratory Rate 20 07/15/22 21:22 Blood Pressure 110/72 07/15/22 21:22 Pulse Oximetry 98 07/15/22 21:22 Oxygen Delivery Room Air 07/15/22 21:22 MDM - Eye Problem Differential Diagnosis Differential diagnosis: Likely corneal abrasion, conjunctivitis and periorbital cellulitis Medical Records Attestation: I reviewed the patient's medical records. Discharge Plan Discharge Clinical Impression: Hordeolum externum (stye) Patient Disposition: Home, Self-Care Condition: Stable Instructions: Antibiotic Patrice Flannery (ED) Additional Instructions: Tylenol and or ibuprofen for pain. Warm compresses 20 minutes 4 times a day for the next 3 days. Dicloxacillin 250 mg 4 times a day for 10 days. Follow-up with the private medical doctor. Return if you get worse or develops any new symptoms Prescriptions: New dicloxacillin 250 mg capsule 250 mg PO Q6H 10 Days Qty: 40 0RF Follow-up/Referrals: Vesna Millard MD [Primary Care
[2022-07-15] MEDS: ONDANSETRON HCL ODT 4 MG TABLET PO (20:19)
[2022-07-15 21:22] VITALS: BP 110/72; PULSE 80; RESP 20; TEMP 36.6; O2SAT 98
== END 2022-07-15 21:24 | disposition home or self-care (01) ==
PROVIDERS: Emergency Provider Emergency Medicine; PCP Family Medicine
DX: H00.013 Hordeolum externum right eye, unspecified eyelid (principal); F17.210 Nicotine dependence, cigarettes, uncomplicated
CPT/HCPCS: 99283; A9270

== ENCOUNTER 2022-09-01 14:04 | Emergency (ER) | payer OTHER, SELFPAY ==
[2022-09-01 14:07] VITALS: BP 141/91; PULSE 102; RESP 20; TEMP 36.9; O2SAT 98
--- NOTE | 2022-09-01 14:11 | ED.EAR ---
HPI - Ear Problem General Chief complaint: Ear Stated complaint: Ear pain Time Seen by Provider: 09/01/22 14:10 Source: patient Mode of arrival: ambulatory Limitations: no limitations History of Present Illness HPI Narrative: 32 year old female presents to the Emergency Department complaining of right ear pain and feeling like something in ear. States it will not drain. She put some OTC drops in ear for ear congestion. MD Complaint: ear pain Location: right ear Duration: constant Severity: moderate Relieving factors: nothing Exacerbating factors: nothing Discharge from ear: Reports no Treatment prior to arrival: eardrops (OTC) Related Data Home Medications Medication Instructions Recorded Confirmed buspirone 10 mg tablet 10 mg PO DAILY 09/01/22 09/01/22 dextroamphetamine-amphetamine ER 20 mg PO DAILY 09/01/22 09/01/22 20 mg 24hr capsule,extend release hydroxyzine HCl 10 mg tablet 10 mg PO DAILY 09/01/22 09/01/22 quetiapine 50 mg tablet 50 mg PO DAILY 09/01/22 09/01/22 Allergies Allergy/AdvReac Type Severity Reaction Status Date / Time No Known Allergies Allergy Verified 09/01/22 14:16 Review of Systems Review of Systems: All systems reviewed & are unremarkable except as noted in HPI and below Constitutional: Constitutional: Reports as per HPI Eyes: Eyes: Reports as per HPI ENT: Reports system reviewed and no additional complaints, except as documented Cardiovascular: Cardiovascular: Reports as per HPI Respiratory: Respiratory: Reports as per HPI Gastrointestinal: Gastrointestinal: Reports as per HPI Genitourinary: Genitourinary: Reports no additional female genitourinary complaints Musculoskeletal: Musculoskeletal: Reports no additional musculoskeletal complaints Integumentary/Breasts: Skin/Breast: Reports system reviewed and no additional complaints, except as docu Neurologic: Reports system reviewed and no additional complaints, except as documented PMFSH Past Medical History Medical History Anxiety disorder Bipolar disorder IBS (irritable bowel syndrome) C/D Methamphetamine abuse in remission Surgical History Surgical History Delivery by section History of bilateral tubal ligation Hx of tonsillectomy Social History Social History Smoking packs per day: 0.5 Smoking cigarettes per day: 10.0 Years smoked: 18 Smoking pack-years: 9.00 Smoking status: Current every day smoker Tobacco type: cigarettes Alcohol intake: never Substance use: current Substance use type: marijuana Last use: daily Living arrangements: with family Spiritual care concerns: No Exam Const: General: healthy appearing and no acute distress Nutritional Appearance: well nourished Orientation/consciousness: patient oriented x3 Limitations: no limitations HENMT: Head: normal to inspection Ears: external ears normal and Abnormal EAC present erythema (right), edema (right) and otic discharge (small amount right) Face/Nose/Sinus: Normal external nose present Face and sinus: normal facial exam Mouth: Yes Normal oral and palatal mucosa present Throat: posterior oropharynx normal Eyes: Conjunctivae: conjunctivae normal Pupils: Equal, round and reactive pupils present EOM: EOMs intact bilaterally Direct Ophthalmoscopy: no photophobia Neck: Neck: normal visual inspection Chest: Chest palpation & inspection: normal inspection of the chest Resp: Effort & Inspection: normal respiratory effort Auscultation: clear to auscultation bilaterally Cardio: Rate: regular rate Rhythm: regular rhythm GI: GI Palp: Yes Soft to palpation and No Tenderness to palpation present (GI) Skin: General skin exam: normal color Rashes: no rashes Wounds: no wounds Neuro: General: patient oriented x3, moves all extremities, no mening
[2022-09-01 14:48] VITALS: BP 114/84; PULSE 88; RESP 20; TEMP 36.9; O2SAT 98
== END 2022-09-01 14:50 | disposition home or self-care (01) ==
PROVIDERS: Emergency Provider Emergency Medicine; PCP Family Medicine
DX: H60.91 Unspecified otitis externa, right ear (principal); F17.210 Nicotine dependence, cigarettes, uncomplicated
CPT/HCPCS: 99283

== ENCOUNTER 2022-09-06 08:58 | Outpatient (CLI) | payer OTHER, SELFPAY | END 2022-09-06 08:59 | disposition home or self-care (01) | LOC: CHSLAB 09:00 | PROVIDERS: PCP Nurse Practitioner Family; Visit Provider Nurse Practitioner Family | DX: R19.5 Other fecal abnormalities (principal) | CPT/HCPCS: 87177; 87209 ==

== ENCOUNTER 2022-11-02 13:14 | Emergency (ER) | payer OTHER, SELFPAY ==
[2022-11-02 13:15] VITALS: BP 118/77; PULSE 85; RESP 20; TEMP 36.8; O2SAT 98
[2022-11-02] MEDS: MAG HYDROX/ALUMINUM HYD/SIMETH 30 ML, PHENobarb/HYOSCY/ATROPINE/SCOP 32.4 MG, LIDOCAINE... PO (13:32)
--- NOTE | 2022-11-02 14:05 | ED.GENADULT ---
HPI - General Adult General Chief complaint: Abdominal Pain Stated complaint: abdominal pain Time Seen by Provider: 11/02/22 13:49 Source: patient Mode of arrival: ambulatory Limitations: no limitations History of Present Illness HPI narrative: 32-year-old white female history of GERD started having the same pain again 2 days ago burning but it was indigestion epigastric left upper quadrant it was 9/10 last night 8/10 today. Tums helps she had nausea last night almost throughout. She took Pepto-Bismol this morning that helped a little bit as did the Tums. She had said she had a H.pylori stomach infection in the past similar to this. Denies any problems eating and drinking voiding or stooling set for little constipation. She denies any fever cough runny nose sore throat rash lumps or bumps itching bleeding or bruising. She started her period on the . He had been taking 400 mg of Advil gel for this. Denies any other complaints. She smokes Related Data Home Medications Medication Instructions Recorded Confirmed buspirone 10 mg tablet 10 mg PO DAILY 09/01/22 11/02/22 dextroamphetamine-amphetamine ER 20 mg PO DAILY 09/01/22 11/02/22 20 mg 24hr capsule,extend release (Adderall XR) hydroxyzine HCl 10 mg tablet 10 mg PO DAILY 09/01/22 11/02/22 quetiapine 50 mg tablet 50 mg PO DAILY 09/01/22 11/02/22 dextroamphetamine-amphetamine 10 10 mg PO QACLUNCH 11/02/22 11/02/22 mg tablet (Adderall) Allergies Allergy/AdvReac Type Severity Reaction Status Date / Time No Known Allergies Allergy Verified 11/02/22 13:24 Review of Systems Review of Systems: All systems reviewed & are unremarkable except as noted in HPI and below PMFSH Past Medical History Medical History Anxiety disorder Bipolar disorder IBS (irritable bowel syndrome) C/D Methamphetamine abuse in remission Surgical History Surgical History Delivery by section History of bilateral tubal ligation Hx of tonsillectomy Social History Social History Smoking packs per day: 0.5 Smoking cigarettes per day: 10.0 Years smoked: 18 Smoking pack-years: 9.00 Smoking status: Current every day smoker Tobacco type: cigarettes Alcohol intake: never Substance use: current Substance use type: marijuana Last use: daily Living arrangements: with family Spiritual care concerns: No Exam Narrative: White female moderate apparent distress.? Head normocephalic, atraumatic.? Eyes conjunctiva pink sclera nonicteric.? Extraocular movements are intact.? Ears externally normal.? Oropharynx is clear with moist mucous membranes without exudates.? Neck is supple nontender no lymphadenopathy.? Back is nontender.? Lungs are clear.? Heart is regular rate and rhythm without murmurs gallops or rubs.? Chest wall is nontender.? Abdomen is soft and has mild epigastric tenderness, no hepatosplenomegaly or masses no CVA tenderness no abdominal bruits.? Extremities no cyanosis clubbing or edema.? Skin is warm and dry without rashes or lesions.? Neurological patient is alert and oriented x4.? Motor and sensory grossly intact.? Gait is normal. Course Vital Signs Vital signs: Vital Signs Temperature 36.8 C 11/02/22 13:15 Pulse Rate 85 11/02/22 13:15 Respiratory Rate 20 11/02/22 13:15 Blood Pressure 118/77 11/02/22 13:15 Pulse Oximetry 98 11/02/22 13:15 Oxygen Delivery Room Air 11/02/22 13:15 Temperature 36.8 C 11/02/22 13:15 Pulse Rate 85 11/02/22 13:15 Respiratory Rate 20 11/02/22 13:15 Blood Pressure 118/77 11/02/22 13:15 Pulse Oximetry 98 11/02/22 13:15 Oxygen Delivery Room Air 11/02/22 13:15 Medical Decision Making MDM Narrative Medical decision making narrative: patient is placed in room 2 history and physical was perfor
[2022-11-02 14:18] VITALS: BP 116/80; PULSE 82; RESP 20; TEMP 36.7; O2SAT 98
== END 2022-11-02 14:20 | disposition home or self-care (01) ==
PROVIDERS: Emergency Provider Emergency Medicine; PCP Nurse Practitioner Family
DX: K21.9 Gastro-esophageal reflux disease without esophagitis (principal); F17.210 Nicotine dependence, cigarettes, uncomplicated
CPT/HCPCS: 99283; A9270

== ENCOUNTER 2023-01-03 13:26 | Emergency (ER) | payer OTHER, SELFPAY ==
[2023-01-03 13:26] VITALS: BP 142/110; PULSE 108; RESP 20; TEMP 36; O2SAT 98
--- NOTE | 2023-01-03 13:47 | ECG_ITS ---
Measurements Intervals [place] Rate: 100 P: 65 DE: 142 QRS: 74 QRSD: 80 T: 47 QT: 332 QTc: 429 Interpretive Statements SINUS TACHYCARDIA BORDERLINE ECG NO PREVIOUS ECG AVAILABLE FOR COMPARISON Electronically Signed On 01-03-2023 16:37:40 CDT by Juan José Infante D.O.
[2023-01-03 14:00] LABS: Basophils Absolute Auto 0.11 K/mm3 (0.00-0.10); Eosinophils Absolute Auto 0.06 K/mm3 (0.02-0.50); Eosinophils Percent Auto 0.5 % (1.0-6.0); Immature Granulocyte Absolute 0.03 K/mm3 (0.00-0.00); Immature Granulocyte Percent A 0.3 % (0.0-0.0); Lymphocytes Absolute Auto 2.43 K/mm3 (1.10-4.50); Lymphocytes Percent Auto 21.5 % (18.0-42.0); Mean Corpuscular HGB Conc 32.6 g/dL (32.0-36.0); Mean Corpuscular Hemoglobin 29.9 pg (27.0-31.0); Mean Corpuscular Volume 91.9 fL (78.0-102.0); Mean Platelet Volume 10.8 fl (9.2-11.8); Monocytes Absolute Auto 0.92 K/mm3 (0.10-0.90); Monocytes Percent Auto 8.1 % (2.0-11.0); Neutrophils Absolute Auto 7.8 K/mm3 (1.7-7.2); Neutrophils Percent Auto 68.6 % (50.0-70.0); Platelet Count Result 293 K/mm3 (150-420); Red Blood Count 4.68 M/mm3 (4.20-5.40); Red Cell Distribution Width 13.1 % (11.6-14.4); White Blood Count 11.3 K/mm3 (4.8-10.8)
[2023-01-03 14:01] LABS: Appearance Urine Clear (Clear); Bilirubin Urine Negative (Negative); Blood Urine 1+ (Negative); Color Urine Light Yellow (Yellow); Glucose Urine UA Negative (Negative); Ketones Urine Negative (Negative); Leukocyte Esterase Ur 1+ LEU/UL (Negative); Nitrate Urine Negative (Negative); Protein Urine Negative (Negative); Urobilinogen Urine 0.2 mg/dL (0.2-1.0)
[2023-01-03 14:05] LABS: Pregnancy On Board Control Positive; Urine Pregnancy Test Negative
[2023-01-03 14:07] LABS: Add Urine Microscopic? YES; RBC Urine 0-2 /hpf (0-2); WBC Urine 0-3 /hpf (0-3)
[2023-01-03 14:08] LABS: Bacteria Urine Trace /hpf; Squamous Epithelial Cell Urine Few /hpf (Few)
[2023-01-03 14:14] LABS: Amphetamine Screen Urine Negative (Negative); Barbiturate Screen Urine Negative (Negative); Benzodiazepines Screen Urine Negative (Negative); Cannabinoid Screen Urine Positive (Negative); Cocaine Screen Urine Negative (Negative); Methadone Screen Urine Negative (Negative); Opiate Screen Urine Negative (Negative); Phencyclidine Screen Urine Negative (Negative)
[2023-01-03 14:16] LABS: SARS-CoV-2 Ag Negative (Negative)
[2023-01-03 14:19] LABS: Salicylate 4.6 mg/dL (2.8-20.0)
[2023-01-03 14:19] LABS: Acetaminophen < 2 ug/mL (10-30)
[2023-01-03 14:21] LABS: Alanine Aminotransferase 16 U/L (14-59); Albumin Level 4.4 g/dL (3.4-5.0); Alkaline Phosphatase 60 U/L (46-116); Anion Gap 11 mmol/L (8-16); Aspartate Amino Transferase 28 U/L (15-37); Bilirubin,Total 0.4 mg/dL (0.00-1.00); Blood Urea Nitrogen 10 mg/dL (7-18); Calcium 9.4 mg/dL (8.5-10.1); Carbon Dioxide 27 mmol/L (21-32); Chloride 103 mmol/L (98-108); Estimated Glomerular Filt Rate > 60; Ethanol < 3 mg/dL (0-6); Glucose 103 mg/dL (70-99); Osmolality Calculated 291 mOsm/kg (285-295); Potassium 3.7 mmol/L (3.5-5.1); Sodium 141 mmol/L (136-145); Thyroid Stimulating Hormone 1.29 uIU/mL (0.36-3.74); Total Protein 7.5 g/dL (6.4-8.2)
[2023-01-03 14:35] VITALS: BP 121/86; PULSE 97; RESP 20; O2SAT 97
[2023-01-03 16:32] VITALS: BP 118/78; PULSE 68; RESP 16; TEMP 36.8; O2SAT 100
--- NOTE | 2023-01-03 16:53 | ED.PSYCH ---
HPI - Psych General Chief Complaint: Psychiatric Symptoms <Billy Simental MD - Last Filed: 01/04/23 06:32> Stated Complaint: suicidal ideations <Billy Simental MD - Last Filed: 01/04/23 06:32> Time Seen by Provider: 01/03/23 13:36 <Billy Simental MD - Last Filed: 01/04/23 06:32> Source: patient <Billy Simental MD - Last Filed: 01/04/23 06:32> Mode of arrival: ambulatory <Billy Simental MD - Last Filed: 01/04/23 06:32> Limitations: no limitations <Billy Simental MD - Last Filed: 01/04/23 06:32> History of Present Illness HPI Narrative: this is a 32-year-old female that presents with suicidal ideation and clear plan. The patient recently signed herself out of [facility] because of some difficulty with stay, has a history of bipolar disorder, and lives with her significant other and he states that she has been states that she would rather kill herself by jumping off a bridge, and she states the same explicitly. <Billy Simental MD - Last Filed: 01/04/23 06:32> MD complaint: suicidal ideation <Billy Simental MD - Last Filed: 01/04/23 06:32> Onset (ago): day(s) <Billy Simental MD - Last Filed: 01/04/23 06:32> Duration: constant <Billy Simental MD - Last Filed: 01/04/23 06:32> History of same: Yes <Billy Simental MD - Last Filed: 01/04/23 06:32> Relieving factors: none <Billy Simental MD - Last Filed: 01/04/23 06:32> Exacerbating factors: none <Billy Simental MD - Last Filed: 01/04/23 06:32> Related Data Home Medications: Home Medications Medication Instructions Recorded Confirmed buspirone 10 mg tablet 10 mg PO DAILY 09/01/22 01/03/23 dextroamphetamine-amphetamine ER 20 mg PO DAILY 09/01/22 01/03/23 20 mg 24hr capsule,extend release (Adderall XR) hydroxyzine HCl 10 mg tablet 10 mg PO DAILY 09/01/22 01/03/23 quetiapine 50 mg tablet 50 mg PO DAILY 09/01/22 01/03/23 dextroamphetamine-amphetamine 10 10 mg PO QACLUNCH 11/02/22 01/03/23 mg tablet (Adderall) <Billy Simental MD - Last Filed: 01/04/23 06:32> Allergies/Adverse Reactions: Allergies Allergy/AdvReac Type Severity Reaction Status Date / Time No Known Allergies Allergy Verified 01/03/23 13:45 <Billy Simental MD - Last Filed: 01/04/23 06:32> Review of Systems Review of Systems: All systems reviewed & are unremarkable except as noted in HPI and below <Billy Simental MD - Last Filed: 01/04/23 06:32> PMFSH Past Medical History Medical History: Medical History Anxiety disorder Bipolar disorder IBS (irritable bowel syndrome) C/D Methamphetamine abuse in remission <Billy Simental MD - Last Filed: 01/04/23 06:32> Surgical History Surgical History: Surgical History Delivery by section History of bilateral tubal ligation Hx of tonsillectomy <Billy Simental MD - Last Filed: 01/04/23 06:32> Social History Social History: Social History Smoking packs per day: 0.5 Smoking cigarettes per day: 10.0 Years smoked: 18 Smoking pack-years: 9.00 Smoking status: Current every day smoker Tobacco type: cigarettes Alcohol intake: never Substance use: current Substance use type: does not use Last use: daily Living arrangements: with family Spiritual care concerns: No <Billy Simental MD - Last Filed: 01/04/23 06:32> Exam Const: General: no acute distress <Billy Simental MD - Last Filed: 01/04/23 06:32> Nutritional Appearance: well nourished <Billy Simnetal MD - Last Filed: 01/04/23 06:32> Orientation/consciousness: patient oriented x3 <Billy Simental MD - Last Filed: 01/04/23 06:32> Limitations: no limitations <Billy Simental MD - Last Filed:
[2023-01-03] MEDS: LORazepam INJ (*CRX) 2 MG/ML VIAL 0.5 MG IM (17:42)
[2023-01-03 18:45] VITALS: BP 118/79; PULSE 80; RESP 16; TEMP 36.6; O2SAT 98
[2023-01-03 22:09] VITALS: BP 120/72; PULSE 86; RESP 16; TEMP 36.6; O2SAT 98
--- NOTE | 2023-01-04 00:37 | PC.NURSE ---
Kelli from [facility] called and informed staff that there are no beds available tonight. He said to call back in the morning after 10am to check and see if there has been any discharges.
[2023-01-04 02:00] VITALS: BP 116/74; PULSE 82; RESP 17; TEMP 37.1; O2SAT 98
[2023-01-04] MEDS: LORazepam INJ (*CRX) 2 MG/ML VIAL 0.5 MG IM (05:24)
--- NOTE | 2023-01-04 05:27 | PC.NURSE ---
Pt woke up and went to the bathroom and then went back to room and began screaming that she wasn't suicidal anymore and that she wanted to smoke a cigarette. This nurse attempted to inform pt that at this time she was unable to receive her discharge papers d/t her statement of wanting to harm herself. Pt continued to yell that she wanted to be discharged and that she was suicidal yesterday but not today. Pt began to cry in her room and screamed that she felt like a caged animal. Pt was offered medication to help her calm down but she declined. Pt then allowed this nurse to talk to her and this nurse informed pt that we could work on a possible reevaluation since she is no longer suicidal. Pt agreed and then agreed to take medications for relaxation. Pt apologized and then stated that she knows that she needs help and wants help but she stated that she no longer wants to kill herself and denies any plan to kill herself. This nurse performed the [place] assessment on pt again and she does not meet criteria on the [place] scale for suicidal ideation. Pt is currently calm and cooperative. Pt is still wanting help and to be seen at a facility but pt denies any active suicidal ideation at this time.
[2023-01-04 07:49] VITALS: BP 102/62; PULSE 78; RESP 14; TEMP 36.8; O2SAT 97
--- NOTE | 2023-01-04 09:46 | PC.NURSE ---
Copy of chart faxed to [facility] in [place].
[2023-01-04] MEDS: hydrOXYzine HCL 25 MG TABLET PO (09:49)
[2023-01-04 10:00] VITALS: BP 123/78; PULSE 84; RESP 18; TEMP 36.8; O2SAT 97
[2023-01-04] MEDS: HALOPERIDOL LACTATE 5 MG/ML VIAL IM (10:34)
[2023-01-04 11:47] VITALS: BP 131/71; PULSE 85; RESP 16; O2SAT 98
[2023-01-04 16:55] VITALS: BP 127/86; PULSE 99; RESP 18; TEMP 36.6; O2SAT 98
[2023-01-04] MEDS: busPIRone HCL 5 MG TABLET 10 MG PO (17:57)
[2023-01-04] MEDS: QUEtiapine FUMARATE 25 MG TABLET 50 MG PO (17:58)
--- NOTE | 2023-01-04 20:32 | PC.NURSE ---
[facility] reports that they can transport pt to [facility] in [place], [place] at 0900. Attempted to call [facility] x4 to update them on transportation status but was unable to speak to someone at this time.
[2023-01-04 22:00] VITALS: BP 124/72; PULSE 86; RESP 16; TEMP 37; O2SAT 98
--- NOTE | 2023-01-04 23:07 | PC.NURSE ---
Addendum entered by Yessy Wang RN 01/04/23 23:07: This nurse spoke with Maggi from [facility]. Original Note: [facility] called back and they have been updated that the pt will be leaving [facility] at 0900.
[2023-01-05 01:21] VITALS: BP 120/64; PULSE 72; RESP 18; TEMP 36.4; O2SAT 98
[2023-01-05 05:00] VITALS: BP 126/66; PULSE 68; RESP 18; TEMP 37.1; O2SAT 98
[2023-01-05] MEDS: NICOTINE (*PBKC) 21 MG PATCH 1 PATCH TRANSDERM (06:19)
--- NOTE | 2023-01-05 06:36 | PC.NURSE ---
[facility] called to confirm if transport was still needed. This nurse informed them that transport is still needed for the patient. [facility] confirmed that they will be here around 0900.
--- NOTE | 2023-01-05 07:12 | ED.GENADULT ---
HPI - General Adult General Chief complaint: Psychiatric Symptoms Stated complaint: suicidal ideations Time Seen by Provider: 01/03/23 13:36 Source: patient Mode of arrival: ambulatory Limitations: no limitations Related Data Home Medications Medication Instructions Recorded Confirmed buspirone 10 mg tablet 10 mg PO DAILY 09/01/22 01/03/23 dextroamphetamine-amphetamine ER 20 mg PO DAILY 09/01/22 01/03/23 20 mg 24hr capsule,extend release (Adderall XR) hydroxyzine HCl 10 mg tablet 10 mg PO DAILY 09/01/22 01/03/23 quetiapine 50 mg tablet 50 mg PO DAILY 09/01/22 01/03/23 dextroamphetamine-amphetamine 10 10 mg PO QACLUNCH 11/02/22 01/03/23 mg tablet (Adderall) Allergies Allergy/AdvReac Type Severity Reaction Status Date / Time No Known Allergies Allergy Verified 01/03/23 13:45 [facility] Past Medical History Medical History Anxiety disorder Bipolar disorder IBS (irritable bowel syndrome) C/D Methamphetamine abuse in remission Surgical History Surgical History Delivery by section History of bilateral tubal ligation Hx of tonsillectomy Social History Social History Smoking packs per day: 0.5 Smoking cigarettes per day: 10.0 Years smoked: 18 Smoking pack-years: 9.00 Smoking status: Current every day smoker Tobacco type: cigarettes Alcohol intake: never Substance use: current Substance use type: does not use Last use: daily Living arrangements: with family Spiritual care concerns: No Course Course Emergency Course: 0700: pt received to my care at Thursday morning signout at 7am. Presented on Thursday. Is currently accepted for psychiatric inpatient admission to a facility in [facility]. EMS coming at 9am to transport the pt. No acute events overnight. She has been resting without incident. Is still sleeping. 0900: loaded onto EMS stretcher, awake, alert, cooperative. Vital Signs Vital signs: Vital Signs Temperature 36.0 C L 01/03/23 13:26 Pulse Rate 108 H 01/03/23 13:26 Respiratory Rate 20 01/03/23 13:26 Blood Pressure 142/110 H 01/03/23 13:26 Pulse Oximetry 98 01/03/23 13:26 Oxygen Delivery Room Air 01/03/23 13:26 Temperature 37.1 C 01/05/23 08:03 Pulse Rate 84 01/05/23 08:03 Respiratory Rate 19 01/05/23 08:03 Blood Pressure 116/72 01/05/23 08:03 Pulse Oximetry 100 01/05/23 08:03 Oxygen Delivery Room Air 01/05/23 08:03 Medical Decision Making Vital Signs Vital Signs: Vital Signs Temperature 36.0 C L 01/03/23 13:26 Pulse Rate 108 H 01/03/23 13:26 Respiratory Rate 20 01/03/23 13:26 Blood Pressure 142/110 H 01/03/23 13:26 Pulse Oximetry 98 01/03/23 13:26 Oxygen Delivery Room Air 01/03/23 13:26 Temperature 37.1 C 01/05/23 08:03 Pulse Rate 84 01/05/23 08:03 Respiratory Rate 01/05/23 08:03 Blood Pressure 116/72 01/05/23 08:03 Pulse Oximetry 100 01/05/23 08:03 Oxygen Delivery Room Air 01/05/23 08:03 Lab Data 01/03/23 13:44 01/03/23 13:44 Labs: Lab Results 01/03/23 01/03/23 01/03/23 Range/Units 13:44 13:47 13:48 WBC 11.3 H (4.8-10.8) K/mm3 RBC 4.68 (4.20-5.40) M/mm3 Hgb 14.0 (12.0-15.0) g/dL Hct 43.0 (35.0-49.0) % MCV 91.9 (78.0-102.0) fL MCH 29.9 (27.0-31.0) pg MCHC 32.6 (32.0-36.0) g/dL RDW 13.1 (11.6-14.4) % Plt Count 293 (150-420) K/mm3 MPV 10.8 (9.2-11.8) fl Immature Gran % (Auto) 0.3 H (0.0-0.0) % Neut % (Auto) 68.6 (50.0-70.0) % Lymph % (Auto) 21.5 (18.0-42.0) % [place] % (Auto) 8.1 (2.0-11.0) % Eos % (Auto) 0.5 L (1.0-6.0) % Baso % (Auto) 1.0 (0.0-1.0) % Lymph # (Auto) 2.43 (1.10-4.50) K/mm3 [place] # (Auto) 0.92 H (0.10-0.90) K/mm3 Eos # (Auto) 0.06 (0.02-0.50) K/
--- NOTE | 2023-01-05 07:58 | PCDIET ---
Hot breakfast provided to the pt, Pt advised staff she does not like pancakes or sausage. Staff advised we can request something else, pt denied anything else as she does not like eggs or anything. Pt will eat cereal provided.
[2023-01-05 08:03] VITALS: BP 116/72; PULSE 84; RESP 19; TEMP 37.1; O2SAT 100
--- NOTE | 2023-01-05 08:27 | PC.NURSE ---
Pt calling her cousin Janey and then requested to call her boyfriend.
--- NOTE | 2023-01-06 13:41 | PC.NURSE ---
Final urine culture report: no further treatment or action needed.
== END 2023-01-05 09:05 ==
PROVIDERS: Emergency Medicine; Emergency Provider Emergency Medicine; PCP Nurse Practitioner Family
DX: R45.851 Suicidal ideations (principal); F17.210 Nicotine dependence, cigarettes, uncomplicated; Z79.899 Other long term (current) drug therapy; Z20.822 Contact with and (suspected) exposure to COVID-19
CPT/HCPCS: 36415; 80053; 80307; 81001; 81025; 84443; 85025; 87086; 87088; 87426; 93005; 96372; 99285; A9270; C9803; J1630; J2060

== ENCOUNTER 2023-03-27 14:04 | Emergency (ER) | payer OTHER, SELFPAY ==
[2023-03-27 14:04] VITALS: BP 109/60; PULSE 86; RESP 16; TEMP 36.1; O2SAT 100
[2023-03-27] MEDS: CLINDAMYCIN HCL 150 MG CAP 300 MG PO (14:40)
[2023-03-27] MEDS: KETOROLAC (*BKC) 60 MG/2 ML VIAL IM (14:40)
--- NOTE | 2023-03-27 14:58 | ED.DENTAL ---
HPI - Dental/Oral General Chief complaint: Dental/Oral Stated complaint: dental pain Time Seen by Provider: 03/27/23 14:11 Source: patient Mode of arrival: ambulatory Limitations: no limitations History of Present Illness HPI Narrative: Patient is a 33 old female with no significant past medical history that presents today for dental pain. Patient has a chipped left bottom molar that is very painful and infected. She states this started a few days ago. It has gotten worse. She says she does have a appointment with her dentist was not until May. MD Complaint: tooth pain and tooth injury Location: Tooth # Teeth map: 1. tooth chip/abscess Onset (ago): day(s) Duration: constant Severity: moderate Severity scale (1-10): 6 Relieving factors: nothing Exacerbating factors: nothing Context: history of dental caries Associated symptoms: fever Treatment prior to arrival: none Related Data Home Medications Medication Instructions Recorded Confirmed atomoxetine 40 mg capsule 40 mg PO DAILY 03/27/23 03/27/23 buspirone 15 mg tablet 15 mg PO BID 03/27/23 03/27/23 hydroxyzine HCl 50 mg tablet 50 mg PO TID 03/27/23 03/27/23 quetiapine 50 mg tablet (Seroquel) 50 mg PO DAILY 03/27/23 03/27/23 Allergies Allergy/AdvReac Type Severity Reaction Status Date / Time divalproex sodium Allergy Unknown Verified 03/27/23 14:09 [From [facility]] Review of Systems Review of Systems: All systems reviewed & are unremarkable except as noted in HPI and below Constitutional: Constitutional: Reports as per HPI Eyes: Eyes: Reports no additional eye complaints ENT: Reports as per HPI Cardiovascular: Cardiovascular: Reports no additional cardiovascular complaints Respiratory: Respiratory: Reports no additional respiratory complaints Gastrointestinal: Gastrointestinal: Reports no additional gastrointestinal complaints Genitourinary: Genitourinary: Reports no additional female genitourinary complaints Musculoskeletal: Musculoskeletal: Reports no additional musculoskeletal complaints Integumentary/Breasts: Skin/Breast: Reports system reviewed and no additional complaints, except as docu Neurologic: Reports system reviewed and no additional complaints, except as documented Psychiatric: Psychiatric: Reports no additional psychiatric complaints Endocrine: Endocrine: Reports no additional endocrine complaints Hematologic/Lymphatic: Hematologic/Lymphatic: Reports no additional hematologic/lymphatic complaints [facility] Past Medical History Medical History Anxiety disorder Bipolar disorder IBS (irritable bowel syndrome) C/D Methamphetamine abuse in remission Surgical History Surgical History Delivery by section History of bilateral tubal ligation Hx of tonsillectomy Social History Social History Smoking packs per day: 0.5 Smoking cigarettes per day: 10.0 Years smoked: 18 Smoking pack-years: 9.00 Smoking status: Current every day smoker Tobacco type: cigarettes Alcohol intake: never Substance use: current Substance use type: does not use Last use: daily Living arrangements: with family Spiritual care concerns: No Exam Const: General: healthy appearing Nutritional Appearance: well nourished Orientation/consciousness: patient oriented x3 Limitations: no limitations HENMT: Head: normal to inspection Ears: external ears normal Face/Nose/Sinus: Normal external nose present Face and sinus: normal facial exam Teeth and gingiva: abnormal tooth and associated gingiva Eyes: Conjunctivae: conjunctivae normal Pupils: Equal, round and reactive pupils present EOM: EOMs intact bilaterally Neck: Neck: normal visual inspection Chest: Chest palpation & inspection: normal inspection of the chest Resp: Effort & Inspection: ike
[2023-03-27 15:13] VITALS: BP 110/65; PULSE 80; RESP 17; TEMP 36.7; O2SAT 100
== END 2023-03-27 15:13 | disposition home or self-care (01) ==
PROVIDERS: Emergency Provider Family Medicine
DX: K04.7 Periapical abscess without sinus (principal); F17.210 Nicotine dependence, cigarettes, uncomplicated; Z79.899 Other long term (current) drug therapy
CPT/HCPCS: 96372; 99283; A9270; J1885

== ENCOUNTER 2023-03-28 11:15 | Emergency (ER) | payer OTHER, SELFPAY ==
[2023-03-28 11:15] VITALS: BP 125/98; PULSE 89; RESP 16; TEMP 36.8; O2SAT 99
[2023-03-28 11:23] VITALS: BP 125/98; PULSE 89; RESP 16; TEMP 36.8; O2SAT 99
--- NOTE | 2023-03-28 11:24 | ED.DENTAL ---
HPI - Dental/Oral General Chief complaint: Dental/Oral Stated complaint: dental pain Time Seen by Provider: 03/28/23 11:19 Source: patient Mode of arrival: ambulatory Limitations: no limitations History of Present Illness HPI Narrative: is a 33-year-old female with a cracked an abscess tooth left lower molar with surrounding gum inflammation with no fever chills was seen yesterday in ER and was given antibiotics and was told to continue ibuprofen. MD Complaint: tooth pain Teeth map: 1. cracked and abscessed tooth Duration: constant Severity: severe Severity scale (1-10): 8 Relieving factors: NSAIDs Related Data Home Medications Medication Instructions Recorded Confirmed atomoxetine 40 mg capsule 40 mg PO DAILY 03/27/23 03/28/23 buspirone 15 mg tablet 15 mg PO BID 03/27/23 03/28/23 hydroxyzine HCl 50 mg tablet 50 mg PO TID 03/27/23 03/28/23 quetiapine 50 mg tablet (Seroquel) 50 mg PO DAILY 03/27/23 03/28/23 Allergies Allergy/AdvReac Type Severity Reaction Status Date / Time divalproex sodium Allergy Unknown Verified 03/28/23 11:19 [From [facility]] Review of Systems Review of Systems: All systems reviewed & are unremarkable except as noted in HPI and below PMFSH Past Medical History Medical History Anxiety disorder Bipolar disorder IBS (irritable bowel syndrome) C/D Methamphetamine abuse in remission Surgical History Surgical History Delivery by section History of bilateral tubal ligation Hx of tonsillectomy Social History Social History Smoking packs per day: 0.5 Smoking cigarettes per day: 10.0 Years smoked: 18 Smoking pack-years: 9.00 Smoking status: Current every day smoker Tobacco type: cigarettes Alcohol intake: never Substance use: current Substance use type: does not use Last use: daily Living arrangements: with family Spiritual care concerns: No Exam Const: General: healthy appearing Nutritional Appearance: well nourished Orientation/consciousness: patient oriented x3 Limitations: no limitations HENMT: Face and sinus: normal facial exam Other: Tender left lower molar Eyes: Conjunctivae: conjunctivae normal Chest: Chest palpation & inspection: normal inspection of the chest Resp: Effort & Inspection: normal respiratory effort Auscultation: clear to auscultation bilaterally Cardio: Rate: regular rate Rhythm: regular rhythm Course Course Emergency Course: patient received 60mg IM Toradol, reassessment of pain level has improved, advised continue antibiotics and take medicine as prescribed follow-up with dentist as scheduled. Vital Signs Vital signs: Vital Signs Temperature 36.8 C 03/28/23 11:15 Pulse Rate 89 03/28/23 11:15 Respiratory Rate 16 03/28/23 11:15 Blood Pressure 125/98 H 03/28/23 11:15 Pulse Oximetry 99 03/28/23 11:15 Oxygen Delivery Room Air 03/28/23 11:15 Temperature 36.8 C 03/28/23 11:23 Pulse Rate 89 03/28/23 11:23 Respiratory Rate 16 03/28/23 11:23 Blood Pressure 125/98 H 03/28/23 11:23 Pulse Oximetry 99 03/28/23 11:23 Oxygen Delivery Room Air 03/28/23 11:23 Critical Care Time Critical Care Time Critical Care Time: No Discharge Plan Discharge Clinical Impression: Toothache, Dental abscess Patient Disposition: Home, Self-Care Condition: Stable Instructions: Antibiotic Form, Dental Abscess (ED), Toothache (ED) Additional Instructions: Take medicine as prescribed and follow-up with dentist as scheduled. Prescriptions: New tramadol 50 mg tablet 50 mg PO Q6H PRN (Reason: pain) Qty: 20 0RF No Action hydroxyzine HCl 50 mg tablet 50 mg PO TID buspirone 15 mg tablet 15 mg PO BID atomoxetine 40 mg capsule 40 mg PO DAILY quetiapine [Seroquel
[2023-03-28] MEDS: KETOROLAC (*BKC) 60 MG/2 ML VIAL IM (11:35)
== END 2023-03-28 11:38 | disposition home or self-care (01) ==
LOC: CHSED 11:32
PROVIDERS: Emergency Provider Emergency Medicine
DX: K04.7 Periapical abscess without sinus (principal); K08.89 Other specified disorders of teeth and supporting structures; F17.210 Nicotine dependence, cigarettes, uncomplicated; Z79.899 Other long term (current) drug therapy
CPT/HCPCS: 96372; 99283; J1885

== ENCOUNTER 2023-04-01 09:38 | Emergency (ER) | payer OTHER, SELFPAY ==
[2023-04-01 09:38] VITALS: BP 127/89; PULSE 93; RESP 16; TEMP 36.3; O2SAT 100
[2023-04-01 09:47] VITALS: BP 127/89; PULSE 93; RESP 16; TEMP 36.3; O2SAT 100
--- NOTE | 2023-04-01 10:09 | ED.DENTAL ---
HPI - Dental/Oral General Chief complaint: Dental/Oral Stated complaint: dental pain Time Seen by Provider: 04/01/23 09:55 Source: patient Mode of arrival: ambulatory Limitations: no limitations History of Present Illness HPI Narrative: 33-year-old female with a history of smoking, prior methamphetamine use, anxiety, bipolar disorder, IBS presents to the ER with -- left lower dental pain. The patient is noted to have fracture of the crown and caries of 2nd molar. She came to the ER on 03/28/2023 and received clindamycin and Ultram. The patient has ongoing pain of the left lower jaw along with swelling of the jaw. No other complaints noted. MD Complaint: tooth pain Location: Tooth # (18) Onset (ago): day(s) Duration: constant Relieving factors: nothing Exacerbating factors: cold and heat Context: history of dental caries Treatment prior to arrival: none Related Data Home Medications Medication Instructions Recorded Confirmed atomoxetine 40 mg capsule 40 mg PO DAILY 03/27/23 04/01/23 buspirone 15 mg tablet 15 mg PO BID 03/27/23 04/01/23 hydroxyzine HCl 50 mg tablet 50 mg PO TID 03/27/23 04/01/23 quetiapine 50 mg tablet (Seroquel) 50 mg PO DAILY 03/27/23 04/01/23 Allergies Allergy/AdvReac Type Severity Reaction Status Date / Time divalproex sodium Allergy Unknown Verified 04/01/23 09:46 [From [facility]] Review of Systems Review of Systems: All systems reviewed & are unremarkable except as noted in HPI and below Constitutional: Constitutional: Reports as per HPI and Reports no additional constitutional complaints Eyes: Eyes: Reports as per HPI and Reports no additional eye complaints ENT: Reports system reviewed and no additional complaints, except as documented and Reports as per HPI Comments: Pain around left lower 2nd molar Cardiovascular: Cardiovascular: Reports as per HPI and Reports no additional cardiovascular complaints Respiratory: Respiratory: Reports as per HPI and Reports no additional respiratory complaints Gastrointestinal: Gastrointestinal: Reports as per HPI and Reports no additional gastrointestinal complaints Genitourinary: Genitourinary: Reports no additional female genitourinary complaints and Reports as per HPI Musculoskeletal: Musculoskeletal: Reports no additional musculoskeletal complaints and Reports as per HPI Integumentary/Breasts: Skin/Breast: Reports system reviewed and no additional complaints, except as docu and Reports as per HPI Neurologic: Reports system reviewed and no additional complaints, except as documented and Reports as per HPI Psychiatric: Psychiatric: Reports no additional psychiatric complaints and Reports as per HPI Endocrine: Endocrine: Reports no additional endocrine complaints and Reports as per HPI Hematologic/Lymphatic: Hematologic/Lymphatic: Reports no additional hematologic/lymphatic complaints and Reports as per HPI Allergic/Immunologic: Allergic/Immunologic: Reports no additional allergic/immunologic complaints and Reports as per HPI PMFSH Past Medical History Medical History Anxiety disorder Bipolar disorder IBS (irritable bowel syndrome) C/D Methamphetamine abuse in remission Surgical History Surgical History Delivery by section History of bilateral tubal ligation Hx of tonsillectomy Social History Social History Smoking packs per day: 0.5 Smoking cigarettes per day: 10.0 Years smoked: 18 Smoking pack-years: 9.00 Smoking status: Current every day smoker Tobacco type: cigarettes Alcohol intake: never Substance use: current Substance use type: does not use Last use: daily Living arrangements: with family Spiritual care concerns: No Exam Const: General: ill appearing Nutritional Appearance: thin Orientation/conscious
== END 2023-04-01 10:50 | disposition home or self-care (01) ==
PROVIDERS: Emergency Provider Internal Medicine Critical Care Medicine
DX: K02.9 Dental caries, unspecified (principal); S02.5XXA Fracture of tooth (traumatic), initial encounter for closed fracture; Z79.899 Other long term (current) drug therapy; F17.210 Nicotine dependence, cigarettes, uncomplicated; X58.XXXA Exposure to other specified factors, initial encounter
CPT/HCPCS: 99281

== ENCOUNTER 2023-10-21 15:56 | Emergency (ER) | payer OTHER, SELFPAY ==
[2023-10-21 15:57] VITALS: BP 115/70; PULSE 109; RESP 20; TEMP 36.3; O2SAT 99
--- NOTE | 2023-10-21 16:06 | ED.ABDPAIN ---
HPI - Abdominal Pain General Chief Complaint: Abdominal Pain Stated Complaint: right side upper abdominal pain Time Seen by Provider: 10/21/23 15:59 Source: patient Mode of arrival: ambulatory Limitations: no limitations History of Present Illness HPI narrative: 33-year-old female with a history of smoking, prior methamphetamine use, anxiety, bipolar disorder, IBS, GERD, EGD/ she colonoscopy many years ago and H pylori positive presents to the ER with multiple weeks history of -- right upper quadrant abdominal pain which has gotten worse over the past 1 day. No nausea / vomiting. The patient is constipated. No fever or chills. No radiation of the pain. No exacerbating or relieving factors. MD elicited complaint: abdominal pain Pertinent past history: gastritis and other ( GERD, IBS) Onset (ago): week(s) ( last few weeks) Pain Consistency: constant Location: RUQ Severity: mild Quality: aching Radiation: none Migration to: no migration Exacerbating factors: nothing Relieving factors: nothing Associated symptoms: constipation Related Data Home Medications Medication Instructions Recorded Confirmed atomoxetine 40 mg capsule 40 mg PO DAILY 03/27/23 04/01/23 buspirone 15 mg tablet 15 mg PO BID 03/27/23 04/01/23 hydroxyzine HCl 50 mg tablet 50 mg PO TID 03/27/23 04/01/23 quetiapine 50 mg tablet (Seroquel) 50 mg PO DAILY 03/27/23 04/01/23 Allergies Allergy/AdvReac Type Severity Reaction Status Date / Time divalproex sodium Allergy Unknown Verified 04/01/23 09:46 [From [facility]] Review of Systems Review of Systems: All systems reviewed & are unremarkable except as noted in HPI and below Constitutional: Constitutional: Reports as per HPI and Reports no additional constitutional complaints Eyes: Eyes: Reports as per HPI and Reports no additional eye complaints ENT: Reports system reviewed and no additional complaints, except as documented and Reports as per HPI Cardiovascular: Cardiovascular: Reports as per HPI and Reports no additional cardiovascular complaints Respiratory: Respiratory: Reports as per HPI and Reports no additional respiratory complaints Gastrointestinal: Gastrointestinal: Reports as per HPI and Reports no additional gastrointestinal complaints Genitourinary: Genitourinary: Reports no additional female genitourinary complaints and Reports as per HPI Musculoskeletal: Musculoskeletal: Reports no additional musculoskeletal complaints and Reports as per HPI Integumentary/Breasts: Skin/Breast: Reports system reviewed and no additional complaints, except as docu and Reports as per HPI Neurologic: Reports system reviewed and no additional complaints, except as documented and Reports as per HPI Psychiatric: Psychiatric: Reports no additional psychiatric complaints and Reports as per HPI Endocrine: Endocrine: Reports no additional endocrine complaints and Reports as per HPI Hematologic/Lymphatic: Hematologic/Lymphatic: Reports no additional hematologic/lymphatic complaints and Reports as per HPI Allergic/Immunologic: Allergic/Immunologic: Reports no additional allergic/immunologic complaints and Reports as per HPI PMFSH Past Medical History Medical History Anxiety disorder Bipolar disorder IBS (irritable bowel syndrome) C/D Methamphetamine abuse in remission Surgical History Surgical History Delivery by section History of bilateral tubal ligation Hx of tonsillectomy Social History Social History Smoking packs per day: 0.5 Smoking cigarettes per day: 10.0 Years smoked: 18 Smoking pack-years: 9.00 Smoking status: Current every day smoker Tobacco type: cigarettes Alcohol intake: never Substance use: current Substance use type: marijuana Last use: daily Living arrangements: with family Spiritua
[2023-10-21 16:23] LABS: Hematocrit 34.6 % (35.0-49.0); Hemoglobin 11.6 g/dL (12.0-15.0); Mean Corpuscular HGB Conc 33.5 g/dL (32-36); Mean Corpuscular Hemoglobin 29.6 pg (27.0-31.0); Mean Corpuscular Volume 88.3 fL (78.0-102.0); Mean Platelet Volume 10.3 fl (9.2-11.8); Platelet Count Result 214 K/mm3 (150-420); Red Blood Count 3.92 M/mm3 (4.20-5.40); White Blood Count 5.1 K/mm3 (4.8-10.8)
[2023-10-21 16:25] LABS: Appearance Urine Cloudy (Clear); Bilirubin Urine Negative (Negative); Blood Urine 2+ (Negative); Color Urine Yellow (Yellow); Glucose Urine UA Negative (Negative); Ketones Urine Trace (Negative); Leukocyte Esterase Ur 1+ LEU/UL (Negative); Nitrate Urine Negative (Negative); Protein Urine Negative (Negative); Specific Grav Ur 1.025 (1.010-1.020)
[2023-10-21 16:29] LABS: Add Urine Microscopic? YES; Bacteria Urine 2+ /hpf; Squamous Epithelial Cell Urine Many /hpf (Few)
[2023-10-21 16:35] LABS: Prothrombin Time 10.9 Seconds (9.50-12.1)
[2023-10-21 16:38] LABS: Albumin Level 3.8 g/dL (3.4-5.0); Alkaline Phosphatase 54 U/L (46-116); Anion Gap 9 mmol/L (4-12); Aspartate Amino Transferase 20 U/L (15-37); Bilirubin,Total 0.2 mg/dL (0.00-1.00); Blood Urea Nitrogen 9 mg/dL (7-18); Calcium 8.7 mg/dL (8.5-10.1); Carbon Dioxide 24 mmol/L (21-32); Chloride 100 mmol/L (98-108); Estimated Glomerular Filt Rate > 60; Glucose 98 mg/dL (70-99); Lipase 18 U/L (16-77); Osmolality Calculated 274 mOsm/kg (285-295); Potassium 3.5 mmol/L (3.5-5.1); Sodium 133 mmol/L (136-145); Total Protein 6.8 g/dL (6.4-8.2)
[2023-10-21 16:43] LABS: Band Neutrophils Percent 0 % (0-6); Basophils Absolute Manual 0.05 K/mm3 (0-0.1); Basophils Percent Manual 1 % (0-1); Eosinophils Absolute Manual 0.05 K/mm3 (0.02-0.50); Eosinophils Percent Manual 1 % (1-6); Lactic Acid Reflex 0.8 mmol/L (0.4-2.0); Lymphocytes Percent Manual 6 % (18-44); Monocytes Absolute Manual 0.66 K/mm3 (0.1-0.90); Monocytes Percent Manual 13 % (3-9); Neutrophils Absolute Manual 4.02 K/mm3 (1.7-7.2); Neutrophils Percent Manual 79 % (46-73); Platelet Estimate Adequate (Adequate); Total Cells Counted 100
[2023-10-21 16:49] LABS: Alanine Aminotransferase 17 U/L (14-59)
[2023-10-21 17:01] VITALS: BP 115/70; PULSE 100; RESP 20; O2SAT 97
--- NOTE | 2023-10-23 12:25 | PC.NURSE ---
URINE CULTURE REVIEWED, NO GROWTH NOTED
== END 2023-10-21 17:01 | disposition home or self-care (01) ==
PROVIDERS: Emergency Provider Internal Medicine Critical Care Medicine; PCP Internal Medicine Pulmonary Disease
DX: K21.9 Gastro-esophageal reflux disease without esophagitis (principal); N30.01 Acute cystitis with hematuria; F17.210 Nicotine dependence, cigarettes, uncomplicated
CPT/HCPCS: 36415; 80053; 81001; 83605; 83690; 85025; 85610; 87086; 99283